=== PATIENT | male | born 1940 ===

== ENCOUNTER → 2020-03-12 09:00 | Outpatient (BNVA) | payer MEDICARE, SELFPAY | PROVIDERS: Visit Provider Nurse Practitioner Family | DX: Z12.5 Encounter for screening for malignant neoplasm of prostate (principal); E78.5 Hyperlipidemia, unspecified | CPT/HCPCS: 80053; 80061; 85025; G0103 ==

== ENCOUNTER 2020-06-01 18:46 | Inpatient (IN) | payer MEDICARE, SELFPAY ==
[2020-06-01] VITALS (9 sets, daily range): BP systolic 108–137; BP diastolic 71–82; PULSE 75–131; RESP 15–29; TEMP 36.4; O2SAT 92–98; BMI 25.1
--- NOTE | 2020-06-01 18:51 | ED_ITS ---
HPI - Abdominal Pain General: Chief Complaint: Abdominal Pain Stated Complaint: ABD PAIN Time Seen by Provider: 06/01/20 18:46 Source: patient and EMS Mode of arrival: EMS Limitations: no limitations History of Present Illness: HPI narrative: Jayy is a very nice 79-year-old male comes in complaining of abdominal pain for the past 2 days. He states his pain is primarily in the lower part of his abdomen. He denies any genital or testicular pain. He does not describe any urinary symptoms. Patient states that he had a normal bowel movement this morning which was normal without blood or melena. He has had no nausea or vomiting. He does feel as though he has had a subjective fever. Patient does not describe any chest pain or shortness of breath. He denies having anything similar in the past. He is unaware of anything that makes his pain better or worse. Patient denies any previous surgeries on his abdomen. He denies any chest pain or shortness of breath. Associated Symptoms: Reports fever(s) (Subjective); Denies chills, dysuria, hematuria and syncope Review of Systems Const: Reports: fever(s) (Subjective); Denies: chills, body aches, fatigue, malaise or diaphoresis Eyes: Denies: change in vision, blurry vision, photophobia, eye discomfort, eye discharge, eye redness or yellow eyes ENMT: Denies: throat pain, odynophagia, hoarseness, swelling of lips/tongue, ear or mastoid pain, ear discharge, change in hearing or nasal discharge Card: Denies: chest pain, palpitations, irregular heart rhythm, edema, lightheadedness, syncope, pre-syncope, dyspnea on exertion or orthopnea Resp: Denies: dyspnea, productive cough, non-productive cough, wheezing, hemoptysis or chest congestion : Denies: flank pain, dysuria, urinary frequency, urinary urgency or hematuria Musc: Denies: neck pain, back pain, extremity pain, extremity swelling, joint pain, joint swelling, joint redness, joint warmth or joint stiffness Skin/Breast: Denies: rash, pruritus, erythema, skin pain or skin tenderness Neuro: Denies: headache(s), numbness in extremities, weakness in extremities, sensory changes, lack of coordination, difficulty walking, dizziness, vertigo, confusion, Slurred speech present or seizure-like activity Kenneth/Lymph: Denies: easy bruising, easy bleeding, petechiae, purpura or enlarged lymph nodes All/Imm: Denies: urticaria, throat swelling, tongue swelling, facial swelling or acute wheezing PFSH ED PFSH: Medical History Erectile dysfunction GERD (gastroesophageal reflux disease) History of melanoma Hyperlipidemia Hypertension Surgical History Hx of bilateral cataract extraction Hx of detached retina repair Hx of melanoma excision Family History Other No pertinent family history Social History Smoking and tobacco status: former smoker Quit status (tobacco): has quit using tobacco Former quit date comment: smoked 2-3 PPD x 30+ yrs Second hand smoke exposure: No Alcohol intake: never Lives independently: Yes Household members: spouse Marital status: Current occupational status: retired History of recent travel: No Current gender identity: Male Physical Exam Const: COMMON NORMALS: no acute distress, patient oriented x3, no limitations and alert GENERAL APPEARANCE: cooperative HENMT: COMMON NORMALS: normocephalic, atraumatic, external ears normal, EAC's normal and Normal external nose present HEAD & SCALP: normal to inspection, normocephalic and atraumatic FACE & SINUS: normal facial exam and face symmetric NOSE: Normal external nose present and Normal nares present EXTERNAL EAR: Yes external ears normal EXTERNAL AUDITORY CANAL: EAC's normal MOUTH: Normal oral and palatal mucosa present, lip normal and tongue normal Eye: COMMON NORMALS: Equal, round and reactive pupils present and conjunctivae normal GENERAL EYE: appearance normal, both eyes and all related structures ALIGNMENT: Yes alignment normal PERIORBITAL: periorbital findings normal EYELID: eyelids normal CONJUNCTIVA: Yes conjunctivae normal SCLERA: sclerae normal PUPIL: Yes Equal, round and reactive pupils present Neck/C-Spine: COMMON NORMALS: full ROM, no lymphadenopathy, supple, no meningeal signs and no JVD GENERAL: Yes normal visual inspection and Yes trachea midline Chest: COMMONS NORMALS: normal inspection of the chest and normal palpation of entire chest wall Resp: COMMON NORMALS: normal respiratory effort, No retractions, No use of accessory muscles and clear to auscultation bilaterally EFFORT & INSPECTION: Yes able to speak in complete sentences and Yes symmetric chest movement AUSCULTATION: clear to auscultation bilaterally, no crackles, no rales, no rhonchi and no wheezes Cardio: COMMON NORMALS: no JVD, regular rate, regular rhythm, S1 normal heart sound present and S2 normal heart sound present RATE: regular rate RHYTHM: regular rhythm HEART SOUNDS: S1 normal heart sound present, S2 normal heart sound present, no click, no gallops, no murmurs and no rubs GI: PALPATION: Yes Firmness to palpation present (GI), Yes Tenderness to palpation present (GI) (Moderate to severe pain diffusely. Worse in the lower quadrants.) and Yes Guarding due to palpation present (GI) : COMMON NORMALS: Yes no CVA tenderness BLADDER/KIDNEY EXAM: Yes no CVA tenderness Back/Pelvis: COMMON NORMALS: no CVA tenderness, thoracic and lumbar spine normal to inspection, no thoracic nor lumbar tenderness and thoraco-lumbar ROM normal Extremity: COMMON NORMALS: normal to inspection, full ROM, capillary refill normal, no joint enlargement, no clubbing, cyanosis or edema and no calf tenderness Neuro: COMMON NORMALS: patient oriented x3, CN's II-XII intact bilaterally, moves all extremities, no focal motor deficits and no sensory deficits noted SENSORIUM/ORIENTATION: Yes alert MENINGEAL SIGNS: Yes no meningeal signs SPEECH: speech normal Psych: COMMON NORMALS: mental status grossly normal, Normal thought process present, cooperative, normal affect, speech normal and activity/motor behavior normal SPEECH: Yes normal speech THOUGHT PROCESS: Normal thought process present Skin: COMMON NORMALS: no rashes or lesions noted, turgor normal, no jaundice, no petechiae and no mottling GENERAL SKIN EXAM: no rashes or lesions noted and turgor normal Course Vital Signs: Vital signs: Vital Signs Temperature 99.5 F 06/02/20 00:30 Pulse Rate 122 H 06/02/20 00:30 Respiratory Rate 18 06/02/20 00:30 Blood Pressure 130/69 06/02/20 00:30 Pulse Oximetry 93 06/02/20 00:30 MDM - Abdominal Pain MDM Narrative: Medical decision making narrative: 2147 -on repeat exam the patient is very tender in the right lower quadrant more so than anywhere else. He still denies any pain in his testicles. Patient has a white count of almost 17,000 but his lactic is normal. On CT scan his appendix is not seen so I do not believe appendicitis can be ruled out. Patient is tachycardic and has significant tenderness with palpation. I have reviewed the case in full with Dr. Norman who agrees to consult for rule out of appendicitis. I will go ahead and add on preoperative labs such as EKGs, troponins, Covid testing and I will go ahead and add a ultrasound of the gallbladder as the patient has right-sided abdominal pain although more lower than upper but he did have cholelithiasis noted on CT. Dr. Norman wanted to hold off any antibiotics at this time. 2356 -patient remains tachycardic and having pain in the right lower quadrant. He has minimal if any right upper quadrant pain. Ultrasound performed by the tech reveals an enlarged common bile duct but no sign of wall thickening or blockage. There is a single gallstone present within the gallbladder. Patient's liver enzymes and T bili and alk phos are normal. This time I believe his right side abdominal pain is undifferentiated although clinically and by exam appendicitis appears much more likely. Because of the ongoing medical problems I have admitted to Dr. Pope he will consult Dr. Norman. Differential Diagnosis: Differential diagnosis abdominal pain: Likely abdominal pain, acute appendicitis, calculus of kidney, constipation, diverticulitis, gastroenteritis, pancreatitis and small bowel obstruction Lab Data: Attestation: I reviewed the patient's lab results. Labs: Lab Results 06/01/20 06/01/20 06/01/20 Range/Units 19:53 19:53 19:53 WBC 16.8 H (4.0-10.0) 10^3/ uL RBC 4.79 (4.1-5.3) 10^6/u L Hgb 14.8 (11.7-16.6) g/dL Hct 44.5 (42.0-52.0) % MCV 92.9 (80-94) fL MCH 30.9 (28.0-34.0) pg MCHC 33.3 (30.0-36.0) g/dL RDW 13.3 (12.1-15.1) % Plt Count 194 (130-400) 10^3/c mm MPV 11.6 H (7.4-10.4) fL Neut % (Auto) 86.6 % Lymph % (Auto) 5.2 % [place] % (Auto) 7.3 % Eos % (Auto) 0.1 % Baso % (Auto) 0.5 % Neut # (Auto) 14.54 H (1.8-7.7) 10^3/u L Lymph # (Auto) 0.9 (0.8-4.8) 10^3/u L [place] # (Auto) 1.2 H (0.2-0.9) 10^3/u L Eos # (Auto) 0.0 (0.0-0.8) 10^3/u L Baso # (Auto) 0.1 (0.0-0.1) 10^3/u L Nucleated RBC % (a uto) 0 % Nucleated RBCs # 0.0 /100WBC PT (12.1-14.9) SECO NDS INR (0.8-1.2) Sodium 140 (136-145) mmol/L Potassium 4.6 (3.5-5.1) mmol/L Chloride 105 (98-107) mmol/L Carbon Dioxide 27 (22-29) mmol/L Anion Gap 12.6 (5-19) BUN 15 (8-23) mg/dL Creatinine 1.0 (0.7-1.2) mg/dL GFR Calculation Not Reportable Glucose 139 H (65-115) mg/dL Calculated Osmolal ity 293 (285-295) mOsm/k g Lactic Acid 1.1 (0.5-2.2) mmol/L Calcium 8.6 (8.5-10.5) mg/dL Magnesium 1.8 (1.7-2.3) mg/dL Total Bilirubin 0.3 (0.15-1.2) mg/dL AST 17 (0-40) U/L ALT 14 (0-41) U/L Alkaline Phosphata se 88 (40-130) IU/L Troponin T Baselin e (0-15) ng/L Troponin T 120 Min elem (0-15) ng/L Delta Troponin T Total Protein 6.5 L (6.6-8.7) g/dL Albumin 3.9 (3.5-5.2) g/dL Globulin 2.6 (1.3-4.6) g/dL Lipase 62 H (13-60) U/L Urine Color (Yellow) Urine Appearance (CLEAR) Urine pH (5-7) Ur Specific Gravit y (1.005-1.030) Urine Protein (Negative) Urine Glucose (UA) (Normal) Urine Ketones (Negative) Urine Blood (Negative) Urine Nitrate (Negative) Urine Bilirubin (Negative) Urine Urobilinogen (Negative) mg/dL Ur Leukocyte [place] (Negative) SARS-CoV-2 Ag (Rap id) (Negative) 06/01/20 06/01/20 06/01/20 Range/Units 19:53 19:53 21:15 WBC (4.0-10.0) 10^3/ uL RBC (4.1-5.3) 10^6/u L Hgb (11.7-16.6) g/dL Hct (42.0-52.0) % MCV (80-94) fL MCH (28.0-34.0) pg MCHC (30.0-36.0) g/dL RDW (12.1-15.1) % Plt Count (130-400) 10^3/c mm MPV (7.4-10.4) fL Neut % (Auto) % Lymph % (Auto) % [place] % (Auto) % Eos % (Auto) % Baso % (Auto) % Neut # (Auto) (1.8-7.7) 10^3/u L Lymph # (Auto) (0.8-4.8) 10^3/u L [place] # (Auto) (0.2-0.9) 10^3/u L Eos # (Auto) (0.0-0.8) 10^3/u L Baso # (Auto) (0.0-0.1) 10^3/u L Nucleated RBC % (a uto) % Nucleated RBCs # /100WBC PT 13.10 (12.1-14.9) SECO NDS INR 0.97 (0.8-1.2) Sodium (136-145) mmol/L Potassium (3.5-5.1) mmol/L Chloride (98-107) mmol/L Carbon Dioxide (22-29) mmol/L Anion Gap (5-19) BUN (8-23) mg/dL Creatinine (0.7-1.2) mg/dL GFR Calculation Glucose (65-115) mg/dL Calculated Osmolal ity (285-295) mOsm/k g Lactic Acid (0.5-2.2) mmol/L Calcium (8.5-10.5) mg/dL Magnesium (1.7-2.3) mg/dL Total Bilirubin (0.15-1.2) mg/dL AST (0-40) U/L ALT (0-41) U/L Alkaline Phosphata se (40-130) IU/L Troponin T Baselin e 11 (0-15) ng/L Troponin T 120 Min elem (0-15) ng/L Delta Troponin T Total Protein (6.6-8.7) g/dL Albumin (3.5-5.2) g/dL Globulin (1.3-4.6) g/dL Lipase (13-60) U/L Urine Color Yellow (Yellow) Urine Appearance Clear (CLEAR) Urine pH 6 (5-7) Ur Specific Gravit y 1.015 (1.005-1.030) Urine Protein Neg (Negative) Urine Glucose (UA) Norm (Normal) Urine Ketones Negative (Negative) Urine Blood Neg (Negative) Urine Nitrate Negative (Negative) Urine Bilirubin Neg (Negative) Urine Urobilinogen Norm (Negative) mg/dL Ur Leukocyte [place] Negative (Negative) SARS-CoV-2 Ag (Rap id) (Negative) 06/01/20 06/01/20 Range/Units 22:04 22:39 WBC (4.0-10.0) 10^3/ uL RBC (4.1-5.3) 10^6/u L Hgb (11.7-16.6) g/dL Hct (42.0-52.0) % MCV (80-94) fL MCH (28.0-34.0) pg MCHC (30.0-36.0) g/dL RDW (12.1-15.1) % Plt Count (130-400) 10^3/c mm MPV (7.4-10.4) fL Neut % (Auto) % Lymph % (Auto) % [place] % (Auto) % Eos % (Auto) % Baso % (Auto) % Neut # (Auto) (1.8-7.7) 10^3/u L Lymph # (Auto) (0.8-4.8) 10^3/u L [place] # (Auto) (0.2-0.9) 10^3/u L Eos # (Auto) (0.0-0.8) 10^3/u L Baso # (Auto) (0.0-0.1) 10^3/u L Nucleated RBC % (a uto) % Nucleated RBCs # /100WBC PT (12.1-14.9) SECO NDS INR (0.8-1.2) Sodium (136-145) mmol/L Potassium (3.5-5.1) mmol/L Chloride (98-107) mmol/L Carbon Dioxide (22-29) mmol/L Anion Gap (5-19) BUN (8-23) mg/dL Creatinine (0.7-1.2) mg/dL GFR Calculation Glucose (65-115) mg/dL Calculated Osmolal ity (285-295) mOsm/k g Lactic Acid (0.5-2.2) mmol/L Calcium (8.5-10.5) mg/dL Magnesium (1.7-2.3) mg/dL Total Bilirubin (0.15-1.2) mg/dL AST (0-40) U/L ALT (0-41) U/L Alkaline Phosphata se (40-130) IU/L Troponin T Baselin e (0-15) ng/L Troponin T 120 Min elem 15.25 H (0-15) ng/L Delta Troponin T Not Reportable Total Protein (6.6-8.7) g/dL Albumin (3.5-5.2) g/dL Globulin (1.3-4.6) g/dL Lipase (13-60) U/L Urine Color (Yellow) Urine Appearance (CLEAR) Urine pH (5-7) Ur Specific Gravit y (1.005-1.030) Urine Protein (Negative) Urine Glucose (UA) (Normal) Urine Ketones (Negative) Urine Blood (Negative) Urine Nitrate (Negative) Urine Bilirubin (Negative) Urine Urobilinogen (Negative) mg/dL Ur Leukocyte [place] (Negative) SARS-CoV-2 Ag (Rap id) Negative (Negative) Imaging Data ^: US: My impression: Right upper quadrant ultrasound, tech interpretation -single gallstone present without any evidence of gallbladder wall thickening or pericholecystic fluid. Common bile duct enlarged but no sign of stone within the common bile duct. CXR: Attestation: I personally reviewed and interpreted this imaging study as follows: My impression: No acute cardiopulmonary findings. EKG Data ^: EKG 1: Attestation: I personally reviewed and interpreted this EKG as follows: EKG interpretation date: 06/01/20 EKG interpretation time: 21:46 Interpretation: Sinus tachycardia at 117 beats a minute, left axis deviation, no blocks, normal intervals, no acute ST or T wave changes. 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
--- NOTE | 2020-06-01 18:51 | CTR_ITS ---
PROCEDURE INFORMATION: Exam: CT Abdomen And Pelvis With Contrast Exam date and time: 06/01/2020 8:29 PM Age: 79 years old Clinical indication: Abdominal pain; Localized; Right lower quadrant (rlq) TECHNIQUE: Imaging protocol: Computed tomography of the abdomen and pelvis with intravenous contrast. Radiation optimization: All CT scans at this facility use at least one of these dose optimization techniques: automated exposure control; mA and/or kV adjustment per patient size (includes targeted exams where dose is matched to clinical indication); or iterative reconstruction. Contrast material: OMNI 300; Contrast volume: 95 ml; Contrast route: INTRAVENOUS (IV); COMPARISON: No relevant prior studies available. RADIATION DOSE METRICS: Total DLP (mGy-cm): 663.26 FINDINGS: Lungs: Mild dependent atelectasis lung bases. Liver: Tiny hepatic cyst inferior segment right hepatic lobe. Liver otherwise unremarkable. Gallbladder and bile ducts: Cholelithiasis. Mild intra and extrahepatic biliary ectasia. No visible choledocholithiasis. Pancreas: Unremarkable. No ductal dilation. Spleen: Normal. No splenomegaly. Adrenal glands: Unremarkable. No mass. Kidneys and ureters: Unremarkable. No hydronephrosis. 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 Assessment of the hollow viscus fails to reveal evidence of active or acute pathology. Nonobstructed bowel pattern. Mild sigmoid diverticulosis coli. No visible acute diverticulitis. No visible adynamic or reactive ileus. Appendix: The appendix is not visualized. Intraperitoneal space: No visible evidence of mesenteric lymphadenitis or active mesenteritis/panniculitis. Vasculature: Coronary artery disease. 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 AP and transverse diameter 35 mm. Length 5.3 cm. No visible intimal flap or dissection. Moderately advanced arterial sclerotic disease. 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 Lymph nodes: No current visible evidence of active mesenteric or retroperitoneal lymphadenopathy. Few marginally prominent retroperitoneal periaortic/pericaval lymph nodes of doubtful clinical significance. Urinary bladder: Unremarkable as visualized. Reproductive: Prostate hypertrophy. Bones/joints: No visible acute osseous abnormality. 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 Degenerative disc disease L5/S1 with vacuum disc phenomenon. Mild scoliotic curvature of the spine. Soft tissues: Bilateral small inguinal hernias containing fat only, right larger than left. CT/CT abdomen pelvis w con* [id number] IMPRESSION: 1. Currently no visible evidence of acute abdominal or pelvic pathologic process. 2. 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 AP and transverse diameter 35 mm. Length 5.3 cm. No visible intimal flap or dissection. 3. Moderately advanced arterial sclerotic disease. 4. 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 5. Cholelithiasis. 6. Mild intra and extrahepatic biliary ectasia. No visible choledocholithiasis. 7. 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 8. Other nonurgent, nonemergent, chronic, and age related findings as detailed in text above. Radiation Dose CTDIVOL = (mGy): DLP = 663.26 (mGy-cm)
[2020-06-01] MEDS: morphine 4 mg/mL SDV 1 mL IVP (19:13)
[2020-06-01] MEDS: ondansetron 2 mg/ML SDV 2 mL 4 MG IVP (19:13)
[2020-06-01] MEDS: sodium chloride 0.9% 1,000 ML 999 ML IV (19:13)
[2020-06-01] MEDS: sodium chloride 0.9% 1,000 ML 100 ML IV (19:50)
[2020-06-01 19:57] LABS: Basophils # 0.1 10^3/uL (0.0-0.1); Basophils % 0.5 %; Eosinophils % 0.1 %; Hematocrit 44.5 % (42.0-52.0); Hemoglobin 14.8 g/dL (11.7-16.6); Lymphocytes # 0.9 10^3/uL (0.8-4.8); Lymphocytes % 5.2 %; Mean Corpuscular HGB Conc 33.3 g/dL (30.0-36.0); Mean Corpuscular Hemoglobin 30.9 pg (28.0-34.0); Mean Corpuscular Volume 92.9 fL (80-94); Mean Platelet Volume 11.6 fL (7.4-10.4); Monocytes # 1.2 10^3/uL (0.2-0.9); Monocytes % 7.3 %; Neutrophils # 14.54 10^3/uL (1.8-7.7); Neutrophils % 86.6 %; Nucleated Red Blood Cells % 0 %; Platelet Count 194 10^3/cmm (130-400); Red Blood Count 4.79 10^6/uL (4.1-5.3); Red Cell Distribution Width 13.3 % (12.1-15.1); White Blood Count 16.8 10^3/uL (4.0-10.0)
[2020-06-01 20:19] LABS: Lactic Sepsis W/Reflex 1.1 mmol/L (0.5-2.2)
[2020-06-01 20:20] LABS: Alanine Aminotransferase 14 U/L (0-41); Albumin Level 3.9 g/dL (3.5-5.2); Alkaline Phosphatase 88 IU/L (40-130); Anion Gap 12.6 (5-19); Aspartate Amino Transferase 17 U/L (0-40); Blood Urea Nitrogen 15 mg/dL (8-23); Calcium 8.6 mg/dL (8.5-10.5); Carbon Dioxide 27 mmol/L (22-29); Chloride 105 mmol/L (98-107); Globulin 2.6 g/dL (1.3-4.6); Glucose 139 mg/dL (65-115); Lipase 62 U/L (13-60); Magnesium 1.8 mg/dL (1.7-2.3); Osmolality Calculated 293 mOsm/kg (285-295); Potassium 4.6 mmol/L (3.5-5.1); Sodium 140 mmol/L (136-145); Total Bilirubin 0.3 mg/dL (0.15-1.2); Total Protein 6.5 g/dL (6.6-8.7)
[2020-06-01] MEDS: iohexol 300 mg/mL 100 mL Btl IV (20:43)
[2020-06-01 21:20] LABS: Add Urine Microscopic? NO; Bilirubin Urine Neg (Negative); Blood Urine Neg (Negative); Glucose Urine UA Norm (Normal); Ketones Urine Negative (Negative); Leukocyte Esterase Urine Negative (Negative); Nitrate Urine Negative (Negative); Protein Urine Neg (Negative); Specific Gravity, Urine 1.015 (1.005-1.030); Urine Appearance Clear (CLEAR); Urine Color Yellow (Yellow); Urobilinogen Urine Norm (Negative); pH Urine 6 (5-7)
--- NOTE | 2020-06-01 21:45 | XR_ITS ---
WS: [id number] Exam: XR chest 1V portable [id number] Date/Time of Exam: 06/01/2020 9:45 PM Reason For Exam: Pain Findings: No priors. Infiltrate right lower lung zone. This could represent active pneumonia versus chronic change. Remain ing lung cedeno are clear. No pneumothorax or pleural effusion. Heart size is top limits normal. Ther e may be a hiatal hernia present. XR/XR chest 1V portable [id number] IMPRESSION: 1. Mild infiltrate in the right lower lung zone. This could represent active pn eumonia or chronic change.
--- NOTE | 2020-06-01 21:46 | ECG_ITS ---
[facility] Test Date: 2020-06-02 Pat Name: Jayy Wooten Department: Room: Gender: Male Layer Up: : 1940 Requested By: Yeimi Pedro Order Number: [id number] Reading MD: Measurements Intervals [place] Rate: 115 P: 48 [place]: 180 QRS: -62 QRSD: 105 T: 48 QT: 329 QTc: 455 Interpretive Statements SINUS TACHYCARDIA LEFT AXIS DEVIATION [QRS AXIS < -30] PATTERN CONSISTENT WITH PULMONARY DISEASE INCOMPLETE RIGHT BUNDLE BRANCH BLOCK [90+ ms QRS DURATION, TERMINAL R IN V1/V2, 40+ ms S IN I/aVL/V4/V5/V6] No previous ECG available for comparison [id number]
--- NOTE | 2020-06-01 21:46 | US_ITS ---
WS: [id number] RIGHT UPPER QUADRANT ULTRASOUND HISTORY: Pain COMPARISON: CT abdomen 06/01/2020. Liver: 16.6 cm in length. Normal size liver. Mild central biliary dilatation. No mass. Gallbladder: Normally distended gallbladder with stones. Gallbladder wall is top normal size. No ramya cholecystic fluid. CBD: 1.3 cm Pancreas: Poorly visualized. Right kidney: 11.0 cm in length. Normal size and echogenicity. No hydronephrosis or mass. Aorta and IVC: Unremarkable abdominal aorta and IVC. No ascites. US/US gall bladder [id number] IMPRESSION: 1. Cholelithiasis without evidence for acute cholecystitis. 2. Dilated common bile duct and mild intrahepatic dilatation. Suspicious for d istal CBD stone or pancreatic head mass. Consider ERCP.
[2020-06-01 22:14] LABS: INR 0.97 (0.8-1.2)
[2020-06-01 22:30] LABS: SARS Covid-2 Antigen Negative (Negative)
[2020-06-01 23:05] LABS: Troponin 5 2HR 15.25 ng/L (0-15)
[2020-06-01 23:30] LABS: Troponin(5th) Baseline 11 ng/L (0-15)
--- NOTE | 2020-06-01 23:46 | ECG_ITS ---
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 Measurements Intervals [place] Rate: 117 P: 49 CO: 178 QRS: -64 QRSD: 106 T: 44 QT: 323 QTc: 452 Interpretive Statements SINUS TACHYCARDIA LEFT AXIS DEVIATION [QRS AXIS < -30] PATTERN CONSISTENT WITH PULMONARY DISEASE No previous ECG available for comparison Electronically Signed On 06-02-2020 7:33:41 CDT by Maria Elena Blair M.D. [id number]
--- NOTE | 2020-06-01 23:52 | P.HP_ITS ---
Providers/Chief Complaint Admitting Physician: Nando Pope MD Primary Care Provider: BRANDON López Chief Complaint: ABD PAIN History of Present Illness Jayy Wooten is a 79 year old male who presented today with chief complaint of abdominal pain. Patient is stating that his symptoms started yesterday around 1 AM, he started feeling sharp epigastric discomfort which gradually got worsened and radiated towards the right lower quadrant, he has also been feeling pain in the right lower quadrant area, endorses nausea, rigors/chills, diaphoresis, however he has not taken temperature at home, no emesis diarrhea or constipation. He decided to come to the hospital for worsening of his symptoms. Denying chest pain and shortness of breath. 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 Review of Systems Const: Reports: chills, body aches and fatigue Eyes: Denies: change in vision ENMT: Denies: throat pain Card: Denies: chest pain Resp: Denies: dyspnea GI: Reports: abdominal pain, nausea and heartburn; Denies: vomiting, diarrhea or constipation : Denies: flank pain Musc: Denies: neck pain Skin/Breast: Denies: rash Neuro: Denies: headache(s) Psych: Denies: anxiety Endo: Denies: polyuria Kenneth/Lymph: Denies: easy bruising All/Imm: Denies: urticaria Medications/Allergies Home Medications Medication Instructions Recorded Confirmed Last Taken Type lisinopril 5 mg tablet 5 mg PO DAILY #90 tab 03/11/20 03/11/20 Unknown Rx rosuvastatin 10 mg tablet 10 mg PO DAILY #90 tab 03/11/20 03/11/20 Unknown Rx vardenafil 20 mg tablet 20 mg PO DAILY PRN #10 tab 03/11/20 03/11/20 Unknown Rx Allergies Allergy/AdvReac Type Severity Reaction Status Date / Time atorvastatin [From Lipitor] Allergy ADR-Cramping Verified 03/12/20 08:59 of the Muscles PFSH Acute PFSH: Medical History Erectile dysfunction GERD (gastroesophageal reflux disease) History of melanoma Hyperlipidemia Hypertension Surgical History Hx of bilateral cataract extraction Hx of detached retina repair Hx of melanoma excision Family History Other No pertinent family history Social History Smoking and tobacco status: former smoker Quit status (tobacco): has quit using tobacco Former quit date comment: smoked 2-3 PPD x 30+ yrs Second hand smoke exposure: No Alcohol intake: never Lives independently: Yes Household members: spouse Marital status: Current occupational status: retired History of recent travel: No Current gender identity: Male Vitals/I&O/Wt Last Vital Signs Temp 97.6 F 06/01/20 18:46 Pulse 114 H 06/01/20 23:30 Resp 24 H 06/01/20 23:30 BP 108/81 06/01/20 23:30 Pulse Ox 92 06/01/20 23:30 06/01/20 06/01/20 06/02/20 14:59 22:59 06:59 Intake Total 1000 / 1000 Balance 1000 / 1000 Weight last 48 hrs Weight 81.647 kg Physical Exam Narrative: EXAM NARRATIVE: elderly male, no active distress when I entered the room Patient resting comfortable in his bed saturating well on room air, tachycardic, tachypneic Not complaining of active chest pain Awake alert oriented x3 GCS 15, no neurological deficit EOMI, PERRLA S1, S2 sinus tachycardia, euvolemic Lower extremity no edema gangrene ulcer No acute respiratory distress Abdomen soft, tenderness elicited in the right upper quadrant, Culver's sign positive, tender point noted also about 2 cm above midpoint of inguinal ligament as well exam of appendicitis appendicitis exam, however Rovsing's sign negative, iliopsoas sign negative, obturator sign negative, positive rebound tenderness in right lower quadrant area Appropriate mood and affect No skin ulcer or gangrene Data : 06/01/20 19:53 06/01/20 19:53 A&P Assessment and plan (1) Abdominal pain: Status: Acute Qualifiers: Abdominal location: right lower quadrant Qualified Code(s): R10.31 - Right lower quadrant pain (2) Aspiration pneumonitis: Status: Acute (3) Diaphragmatic hernia: Status: Acute (4) Sepsis: Status: Acute Additional A&P Information Sepsis Criteria met with tachypnea tachycardia leukocytosis Patient has rebound tenderness in right lower quadrant area, Culver's sign also positive CT scan did not comment on appendix however ultrasound reveals gallstones with gallbladder wall thickening, official report is pending, no signs of cholangitis, chest x-ray is consistent with aspiration pneumonitis, diaphragmatic hernia I would go ahead and keep patient n.p.o., start Zosyn to cover gram-negative's and anaerobes for above-mentioned possible etiologies, start him on fluids Dr. 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 Full code Attestations Medical Necessity Statement*: Anticipating stay in the hospital course more than 2 midnights continued IV antibiotics for sepsis, aspiration pneumonitis, concern for appendicitis Time Spent in Patient Care: (>than 50% of time spent in counselling and/or direct pt care on unit) . 40mins Coding Level of Care Code Acute Sectional Belt Mold Assembler for Chg Fwd Diagnoses Abdominal pain R10.31 Abdominal location: right lower quadrant Aspiration pneumonitis J69.0 Diaphragmatic hernia K44.9 Sepsis A41.9
[2020-06-02] VITALS (21 sets, daily range): BP systolic 114–182; BP diastolic 6–133; PULSE 87–122; RESP 15–57; TEMP 36.4–37.6; O2SAT 90–98
[2020-06-02] MEDS: dextrose 5%-sod chloride 0.45% 1,000 ML 75 ML IV (01:32)
[2020-06-02] MEDS: piperacillin-tazobactam 3.375 GM in sodium chloride 0.9% (plus) 50 ML IV ×4 (01:33→23:46)
--- NOTE | 2020-06-02 06:35 | PM.CONSULT ---
Providers/Reason For Consult Consulting Physican/Specialty*: General Surgery Rizwan Norman MD Reason for Consult*: Right lower quadrant abdominal pain. Attending Physician: Nando Pope MD Primary Care Provider: BRANDON López History of Present Illness History of Present Illness Jayy Wooten is a 79 year old male who woke up with epigastric pain yesterday morning. It eventually started radiating to the right lower quadrant of the abdomen. The patient has had some nausea and chills. He has not taken his temperature at home. He says after a day of putting up with it, he came to the emergency room. A CAT scan showed no obvious acute problems but did show gallstones (also showed up on ultrasound). The patient says that he received mixed messages from different people in the emergency room about what was wrong with him and seems to be very upset about that experience. He was brought into the hospital for further evaluation. He was started on broad-spectrum antibiotics. The patient tells me that he feels little bit better this morning but he has been receiving pain medication. Review of Systems General: Reports: 10 or more systems reviewed and unremarkable except in HPI and below Const: Reports: chills GI: Reports: abdominal pain and nausea; Denies: change in bowel habits Meds/Allergies Home Medications and Allergies Home Medications Medication Instructions Recorded Confirmed Last Taken Type lisinopril 5 mg tablet 5 mg PO DAILY #90 tab 03/11/20 03/11/20 Unknown Rx rosuvastatin 10 mg tablet 10 mg PO DAILY #90 tab 03/11/20 03/11/20 Unknown Rx vardenafil 20 mg tablet 20 mg PO DAILY PRN #10 tab 03/11/20 03/11/20 Unknown Rx Allergies Allergy/AdvReac Type Severity Reaction Status Date / Time atorvastatin [From Lipitor] Allergy ADR-Cramping Verified 03/12/20 08:59 of the Muscles Current Medications Current Medications Generic Name Dose Route Start Last Admin Trade Name Freq PRN Reason Stop Dose Admin Sodium Chloride 1,000 mls @ 100 mls/hr 06/01/20 19:00 06/01/20 19:50 Sodium Chloride 0.9% IV 100 mls/hr .Q10H DENIS Administration Dextrose/Sodium Chloride 1,000 mls @ 75 mls/hr 06/02/20 00:51 06/02/20 01:32 Dextrose 5%-Sod Chloride 0.45% IV 75 mls/hr .[id number] DENIS Administration Piperacillin Sod/Tazobactam 50 mls @ 12.5 mls/hr 06/02/20 01:00 06/02/20 02:02 Sod 3.375 gm/ Sodium Chloride IV 12.5 mls/hr Q8H DENIS Infusion Protocol As Directed PFSH Acute PFSH: Medical History (Updated 06/02/20 @ 06:36 by Rizwan Norman MD) Erectile dysfunction GERD (gastroesophageal reflux disease) History of melanoma Hyperlipidemia Hypertension Surgical History (Updated 06/02/20 @ 06:39 by Rizwan Norman MD) Hx of bilateral cataract extraction Hx of detached retina repair Left Hx of melanoma excision Family History Other No pertinent family history Social History Smoking and tobacco status: former smoker Quit status (tobacco): has quit using tobacco Former quit date comment: smoked 2-3 PPD x 30+ yrs Second hand smoke exposure: No Alcohol intake: never Lives independently: Yes Household members: spouse Marital status: Current occupational status: retired History of recent travel: No Current gender identity: Male Vitals/I&O/Wt Last Vital Signs Temp 99.7 F H 06/02/20 03:53 Pulse 109 H 06/02/20 03:53 Resp 18 06/02/20 03:53 BP 114/64 06/02/20 03:53 Pulse Ox 95 06/02/20 03:53 06/01/20 06/01/20 06/02/20 14:59 22:59 06:59 Intake Total 1000 / 1006.042 6.042 / 1006.042 Output Total 200 / 200 Balance 1000 / 806.042 -193.958 / 806.042 Weight last 48 hrs Weight 180 lb Physical Exam Narrative: EXAM NARRATIVE: Patient was encountered in his hospital room. He does not appear to be in any acute distress. The lungs are clear anteriorly. The heart seems regular. The abdomen reveals hypoactive bowel sounds. The patient has significant tenderness in the right lower quadrant with an equivocal Rovsing's sign. He does have some percussion tenderness in areas of the right lower quadrant. No obvious masses are palpated. The extremities reveal no edema. Neurologically the patient appears to be grossly intact. Data Imaging^: CT Abd/Pel: Radiologist's impression: CT scan abdomen/pelvis 06/01/2020 IMPRESSION: 1. Currently no visible evidence of acute abdominal or pelvic pathologic process. 2. 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 AP and transverse diameter 35 mm. Length 5.3 cm. No visible intimal flap or dissection. 3. Moderately advanced arterial sclerotic disease. 4. 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 5. Cholelithiasis. 6. Mild intra and extrahepatic biliary ectasia. No visible choledocholithiasis. 7. 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 A&P Assessment and plan (1) Right lower quadrant abdominal pain: CT reviewed. Despite the radiologist's reading, I have concerns that I can see some inflammatory change with fat stranding in the right lower quadrant adjacent to what might be a dilated appendix. I told the patient the most common source of these symptoms and findings would be the appendix. We discussed both conservative and surgical methods of treatment. The patient seems to understand. The patient had a bad experience in the emergency room last night. He says his had a bad experience at [facility] in the past. He says that while I have made the most sense of anybody so far, he still would prefer to be seen at a second hospital for a second opinion. We discussed options of transfer versus leaving AMA. Nursing is going to contact the admitting night hospitalist. Status: Acute Consult Attestations Medical Necessity Statement: See admitting service's notation. Coding Level of Care Code Acute Inpatient Nursing Aide for Chg Fwd Diagnoses Right lower quadrant abdominal pain R10.31
[2020-06-02 07:26] LABS: Basophils # 0.1 10^3/uL (0.0-0.1); Basophils % 0.3 %; Hemoglobin 14.8 g/dL (11.7-16.6); Lymphocytes # 1.7 10^3/uL (0.8-4.8); Lymphocytes % 9.2 %; Mean Corpuscular HGB Conc 33.6 g/dL (30.0-36.0); Mean Corpuscular Hemoglobin 30.7 pg (28.0-34.0); Mean Corpuscular Volume 91.3 fL (80-94); Mean Platelet Volume 11.5 fL (7.4-10.4); Monocytes # 1.1 10^3/uL (0.2-0.9); Neutrophils # 15.36 10^3/uL (1.8-7.7); Neutrophils % 84.2 %; Nucleated Red Blood Cells % 0 %; Platelet Count 181 10^3/cmm (130-400); Red Blood Count 4.82 10^6/uL (4.1-5.3); Red Cell Distribution Width 13.8 % (12.1-15.1); White Blood Count 18.2 10^3/uL (4.0-10.0)
[2020-06-02 07:36] LABS: Alanine Aminotransferase 14 U/L (0-41); Albumin Level 4.1 g/dL (3.5-5.2); Alkaline Phosphatase 81 IU/L (40-130); Aspartate Amino Transferase 19 U/L (0-40); Blood Urea Nitrogen 14 mg/dL (8-23); Calcium 8.6 mg/dL (8.5-10.5); Carbon Dioxide 24 mmol/L (22-29); Chloride 106 mmol/L (98-107); Creatinine Clr Calc Pharmacy 56.7575; Globulin 2.7 g/dL (1.3-4.6); Glucose 137 mg/dL (65-115); Osmolality Calculated 293 mOsm/kg (285-295); Sodium 140 mmol/L (136-145); Total Bilirubin 1.1 mg/dL (0.15-1.2); Total Protein 6.8 g/dL (6.6-8.7)
[2020-06-02] MEDS: sodium chloride 0.9% 1,000 ML 30 ML IV (11:00)
--- NOTE | 2020-06-02 11:06 | ANES.PREANE2 ---
Pre-Anesthetic Assessment Pre-Anesthetic Assessment: Height/Weight: Height 1.8 m Weight 81.647 kg Temp Pulse Resp BP Pulse Ox 98.0 F 94 18 138/82 92 06/02/20 10:53 06/02/20 10:53 06/02/20 10:53 06/02/20 10:53 06/02/20 10:53 Preop Diagnosis: Appendicitis Proposed Procedure: Operation Date: 06/02/20 11:30 Proposed Procedures p Laparoscopic Appendectomy(Not Applicable) - Rizwan Norman MD Familial anesthetic complications: None Was Beta Melanie taken within 24 hours: N/A Last intake: Intake Last Liquid Date 06/01/20 Last Liquid Time 23:30 Last Solid Date 06/01/20 Last Solid Time 15:00 Social: Social History: No alcohol and No tobacco Comment: former smoker Exam: Pre-Anes Outpt Exam: alert, oriented x 3, clear to auscultation bilaterally and regular rate & rhythm Airway: Cervical ROM: WNL MP: 2 Dentition: Other (plate) CV/HEM: CV/HEM: HTN Comments: Abdominal aortic aneurysm (5.3 cm) : Comments: diaphragmatic hernia GI: GI: GERD Metabolic: Metabolic: Hyperlipidemia Anesthetic Plan: ASA status: 2 Anesthesia: General Risk of > 500 ml blood loss (7ml/kg in children): No Meds/Allergies Current Medications: Current Medications Generic Name Dose Route Start Last Admin Trade Name Freq PRN Reason Stop Dose Admin Sodium Chloride 1,000 mls @ 100 m ls/hr 06/01/20 19:00 06/01/20 19:50 Sodium Chloride 0.9% IV 100 mls/hr .Q10H DENIS Administration Dextrose/Sodium Ch loride 1,000 mls @ 75 ml s/hr 06/02/20 00:51 06/02/20 01:32 Dextrose 5%-Sod Chloride 0.45% IV 75 mls/hr .[id number] DENIS Administration Piperacillin Sod/T azobactam 50 mls @ 12.5 mls /hr 06/02/20 01:00 06/02/20 09:28 Sod 3.375 gm/ So dium Chloride IV 12.5 mls/hr Q8H DENIS Administration Protocol As Directed Sodium Chloride 1,000 mls @ 30 ml s/hr 06/02/20 10:45 06/02/20 11:00 Sodium Chloride 0.9% IV 06/03/20 10:44 30 mls/hr .Q24H DENIS Administration PFSH Anesthesia PFSH: Medical History (Updated 06/02/20 @ 06:36 by Rizwan Norman MD) Erectile dysfunction GERD (gastroesophageal reflux disease) History of melanoma Hyperlipidemia Hypertension Surgical History (Updated 06/02/20 @ 06:39 by Rizwan Norman MD) Hx of bilateral cataract extraction Hx of detached retina repair Left Hx of melanoma excision Family History Other No pertinent family history Social History Smoking and tobacco status: former smoker Quit status (tobacco): has quit using tobacco Former quit date comment: smoked 2-3 PPD x 30+ yrs Second hand smoke exposure: No Alcohol intake: never Lives independently: Yes Household members: spouse Marital status: Current occupational status: retired History of recent travel: No Current gender identity: Male Data Anesthesia CBC & Chem 7: 06/02/20 07:10 06/02/20 07:10 Other Labs: Laboratory Results - last 48 hr 06/01/20 06/01/20 06/01/20 19:53 19:53 19:53 WBC 16.8 H RBC 4.79 Hgb 14.8 Hct 44.5 MCV 92.9 MCH 30.9 MCHC 33.3 RDW 13.3 Plt Count 194 MPV 11.6 H Neut % (Auto) 86.6 Lymph % (Auto) 5.2 [place] % (Auto) 7.3 Eos % (Auto) 0.1 Baso % (Auto) 0.5 Neut # (Auto) 14.54 H Lymph # (Auto) 0.9 [place] # (Auto) 1.2 H Eos # (Auto) 0.0 Baso # (Auto) 0.1 Nucleated RBC % (auto) 0 Nucleated RBCs # 0.0 PT INR Sodium 140 Potassium 4.6 Chloride 105 Carbon Dioxide 27 Anion Gap 12.6 BUN 15 Creatinine 1.0 GFR Calculation Not Reportable Glucose 139 H Calculated Osmolality 293 Lactic Acid 1.1 Calcium 8.6 Magnesium 1.8 Total Bilirubin 0.3 AST 17 ALT 14 Alkaline Phosphatase 88 Troponin T Baseline Troponin T 120 Minute Delta Troponin T Total Protein 6.5 L Albumin 3.9 Globulin 2.6 Lipase 62 H Urine Color Urine Appearance Urine pH Ur Specific [place] Urine Protein Urine Glucose (UA) Urine Ketones Urine Blood Urine Nitrate Urine Bilirubin Urine Urobilinogen Ur Leukocyte Esterase SARS-CoV-2 Ag (Rapid) 06/01/20 06/01/20 06/01/20 19:53 19:53 21:15 WBC RBC Hgb Hct MCV MCH MCHC RDW Plt Count MPV Neut % (Auto) Lymph % (Auto) [place] % (Auto) Eos % (Auto) Baso % (Auto) Neut # (Auto) Lymph # (Auto) [place] # (Auto) Eos # (Auto) Baso # (Auto) Nucleated RBC % (auto) Nucleated RBCs # PT 13.10 INR 0.97 Sodium Potassium Chloride Carbon Dioxide Anion Gap BUN Creatinine GFR Calculation Glucose Calculated Osmolality Lactic Acid Calcium Magnesium Total Bilirubin AST ALT Alkaline Phosphatase Troponin T Baseline 11 Troponin T 120 Minute Delta Troponin T Total Protein Albumin Globulin Lipase Urine Color Yellow Urine Appearance Clear Urine pH 6 Ur Specific [place] 1.015 Urine Protein Neg Urine Glucose (UA) Norm Urine Ketones Negative Urine Blood Neg Urine Nitrate Negative Urine Bilirubin Neg Urine Urobilinogen Norm Ur Leukocyte Esterase Negative SARS-CoV-2 Ag (Rapid) 06/01/20 06/01/20 06/02/20 22:04 22:39 07:10 WBC 18.2 H RBC 4.82 Hgb 14.8 Hct 44.0 MCV 91.3 MCH 30.7 MCHC 33.6 RDW 13.8 Plt Count 181 MPV 11.5 H Neut % (Auto) 84.2 Lymph % (Auto) 9.2 [place] % (Auto) 6.0 Eos % (Auto) 0.0 Baso % (Auto) 0.3 Neut # (Auto) 15.36 H Lymph # (Auto) 1.7 [place] # (Auto) 1.1 H Eos # (Auto) 0.0 Baso # (Auto) 0.1 Nucleated RBC % (auto) 0 Nucleated RBCs # 0.0 PT INR Sodium Potassium Chloride Carbon Dioxide Anion Gap BUN Creatinine GFR Calculation Glucose Calculated Osmolality Lactic Acid Calcium Magnesium Total Bilirubin AST ALT Alkaline Phosphatase Troponin T Baseline Troponin T 120 Minute 15.25 H Delta Troponin T Not Reportable Total Protein Albumin Globulin Lipase Urine Color Urine Appearance Urine pH Ur Specific [place] Urine Protein Urine Glucose (UA) Urine Ketones Urine Blood Urine Nitrate Urine Bilirubin Urine Urobilinogen Ur Leukocyte Esterase SARS-CoV-2 Ag (Rapid) Negative 06/02/20 07:10 WBC RBC Hgb Hct MCV MCH MCHC RDW Plt Count MPV Neut % (Auto) Lymph % (Auto) [place] % (Auto) Eos % (Auto) Baso % (Auto) Neut # (Auto) Lymph # (Auto) [place] # (Auto) Eos # (Auto) Baso # (Auto) Nucleated RBC % (auto) Nucleated RBCs # PT INR Sodium 140 Potassium 4.0 Chloride 106 Carbon Dioxide 24 Anion Gap 14.0 BUN 14 Creatinine 1.2 GFR Calculation Not Reportable Glucose 137 H Calculated Osmolality 293 Lactic Acid Calcium 8.6 Magnesium Total Bilirubin 1.1 AST 19 ALT 14 Alkaline Phosphatase 81 Troponin T Baseline Troponin T 120 Minute Delta Troponin T Total Protein 6.8 Albumin 4.1 Globulin 2.7 Lipase Urine Color Urine Appearance Urine pH Ur Specific [place] Urine Protein Urine Glucose (UA) Urine Ketones Urine Blood Urine Nitrate Urine Bilirubin Urine Urobilinogen Ur Leukocyte Esterase SARS-CoV-2 Ag (Rapid) Cardiac Studies: No Data to Display
[2020-06-02] MEDS: metroNIDAZOLE IV 500 MG/100 ML PREMIX 100 MG IV (11:51)
--- NOTE | 2020-06-02 12:31 | PM.OP ---
Operative Report Date of procedure: June 02, 2020 Pre-op Diagnosis: Acute appendicitis. Post-op diagnosis: same Procedure Done: Laparoscopic appendectomy. Specimens removed/disposition: Appendix. Surgeon: Rizwan Norman Anesthesia: General Estimated blood loss (mL): 5 Complications: None Condition: stable Disposition: PACU Procedure: The patient was brought to the Operating Room and was placed in a supine position on the operating room table. General endotracheal anesthesia was induced. The abdomen was prepped and draped in a sterile fashion. A small vertical incision was carried out in the superior aspect of the umbilicus. Blunt dissection was carried out down to the fascia, which was grasped with a Sylvia clamp. A stay suture of 0 Vicryl was placed on either side of the midline and the midline fascia was incised. The underlying peritoneum was opened bluntly and the Lester port was placed directly into the peritoneal cavity and was held in place with the inflatable balloon. The peritoneal cavity was insufflated with carbon dioxide. The laparoscope was used to inspect the peritoneal cavity. No gross abnormalities were initially noted. Two 5-millimeter ports were placed in the left lower quadrant under direct vision. The patient was tilted in a Trendelenburg position and slightly to the left side. A laparoscopic Harbeson was used to elevate the cecum and the appendix was identified adhesed to the terminal ileum. There was no evidence of gross perforation but there was a lot of exudate between the appendix and the ileum itself. The appendix was freed using blunt dissection and was then elevated. The mesoappendix was divided using cautery to maintain hemostasis at the base of the appendix. The base of the appendix appeared healthy and was divided using an endoscopic stapler. The appendix was removed from the peritoneal cavity after being placed in a laparoscopic bag. The right lower quadrant and pelvis were irrigated. The staple line on the cecum was identified and appeared to be in good condition. The Lester port was removed from the umbilical site and the stay sutures of Vicryl were tied to each other at the umbilicus, closing the fascial defect so that it was airtight. A final round of irrigation was carried out in the right lower quadrant and the pelvis. No ongoing problems were seen. The remaining ports were removed from the abdominal wall as the pneumoperitoneum was evacuated. All skin incisions were closed using inverted interrupted sutures of 4-0 Vicryl. Benzoin and Steri-Strips were placed over the incisions and Band-Aids followed. The patient was taken to the Recovery Room in stable condition postoperatively.
--- NOTE | 2020-06-02 12:46 | SUR.PHASEI ---
1236 PATIENT TO PACU FROM OR. RESTLESS IN BED. 3 INCISIONS TO ABDOMEN, CDI, COVERED WITH BANDAIDS.
--- NOTE | 2020-06-02 13:15 | PM.PACU ---
PACU note Post-Anesthesia Exam: awake and vital signs stable Disposition: back to floor
--- NOTE | 2020-06-02 13:30 | SUR.PHASEI ---
1315 PATIENT TO MED SURG. DENIES PAIN. INCISIONS TO ABDOMEN, CDI. [facility] ON MED SURG, WITH STEADY GAIT.
--- NOTE | 2020-06-02 15:03 | PC.SOCIAL ---
Noticed attending still shows Dr Pope therefore verified with Dr Mitchell and she indicates to switch to Dr Hopson. Attending switched. Notified unit control clerk on the floor to have nurse call and update provider that this is his patient.
[2020-06-02] MEDS: ketorolac 30 mg/mL INJ 15 MG IVP ×2 (15:48→20:40)
[2020-06-02] MEDS: famotidine 20 mg/2 mL INJ IVP (15:48)
[2020-06-02] MEDS: D5-NS 0.45% + KCL 20 mEq 20 MEQ/1,000 ML BAG 100 MEQ IV (15:49)
[2020-06-02] MEDS: levalbuterol 0.63 mg/3 mL Neb INHALATION ×2 (16:14→19:35)
--- NOTE | 2020-06-02 17:34 | PM.PN ---
Subjective Subjective: Interval history: Patient was seen post op, doing well. wanting to advance diet. Vitals/I&O/Wt Last Vital Signs Temp 97.1 F L 06/03/20 08:00 Pulse 75 06/03/20 12:42 Resp 17 06/03/20 12:42 BP 138/71 06/03/20 08:00 Pulse Ox 93 06/03/20 12:42 06/02/20 06/03/20 06/03/20 22:59 06:59 14:59 Intake Total 410 / 560 1200 / 1760 1530 / 1530 Balance 410 / 555 1200 / 1755 1530 / 1530 Weight last 48 hrs Weight 81.647 kg Data : 06/03/20 02:10 06/03/20 02:10 A&P Assessment and plan (1) Abdominal pain: Status: Acute Qualifiers: Abdominal location: right lower quadrant Qualified Code(s): R10.31 - Right lower quadrant pain (2) Aspiration pneumonitis: Status: Acute (3) Diaphragmatic hernia: Status: Acute (4) Sepsis: Status: Acute Additional A&P Information Abdominal pain due to appy - S/P lap appy Continue IV abx Post op management per surgery Labs in AM Abdominal aortic aneurysm 5.3 cm No acute hemodynamic compromise, 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 Coding Level of Care Code Acute Wader Boot Top Assembler for Chg Fwd Diagnoses Abdominal pain R10.31 Abdominal location: right lower quadrant Aspiration pneumonitis J69.0 Diaphragmatic hernia K44.9 Sepsis A41.9
[2020-06-03] VITALS (7 sets, daily range): BP systolic 118–138; BP diastolic 66–71; PULSE 73–80; RESP 17–20; TEMP 36.2–36.9; O2SAT 92–94
[2020-06-03] MEDS: famotidine 20 mg/2 mL INJ IVP ×2 (02:12→14:28)
[2020-06-03] MEDS: ketorolac 30 mg/mL INJ 15 MG IVP ×3 (02:12→14:28)
[2020-06-03] MEDS: D5-NS 0.45% + KCL 20 mEq 20 MEQ/1,000 ML BAG 100 MEQ IV (02:14)
[2020-06-03 02:51] LABS: Basophils % 0.1 %; Hematocrit 39.7 % (42.0-52.0); Hemoglobin 13.4 g/dL (11.7-16.6); Lymphocytes # 1.2 10^3/uL (0.8-4.8); Mean Corpuscular HGB Conc 33.8 g/dL (30.0-36.0); Mean Corpuscular Hemoglobin 31.2 pg (28.0-34.0); Mean Corpuscular Volume 92.3 fL (80-94); Mean Platelet Volume 11.6 fL (7.4-10.4); Monocytes # 0.6 10^3/uL (0.2-0.9); Monocytes % 3.9 %; Neutrophils # 13.55 10^3/uL (1.8-7.7); Neutrophils % 87.6 %; Nucleated Red Blood Cells % 0 %; Platelet Count 172 10^3/cmm (130-400); Red Cell Distribution Width 13.6 % (12.1-15.1); White Blood Count 15.5 10^3/uL (4.0-10.0)
[2020-06-03 03:18] LABS: Anion Gap 12.2 (5-19); Blood Urea Nitrogen 14 mg/dL (8-23); Calcium 8.5 mg/dL (8.5-10.5); Carbon Dioxide 23 mmol/L (22-29); Chloride 106 mmol/L (98-107); Creatinine Clr Calc Pharmacy 52.3915; Glucose 146 mg/dL (65-115); Osmolality Calculated 287 mOsm/kg (285-295); Potassium 4.2 mmol/L (3.5-5.1); Sodium 137 mmol/L (136-145)
[2020-06-03] MEDS: piperacillin-tazobactam 3.375 GM in sodium chloride 0.9% (plus) 50 ML IV (06:31)
--- NOTE | 2020-06-03 08:12 | P.PN_ITS ---
Subjective Subjective: Interval history: The patient is feeling better. He would like some regular food. He says he is ready to go home. He is passing flatus and tolerating clear liquids. Vitals/I&O/Wt Last Vital Signs Temp 97.1 F L 06/03/20 08:00 Pulse 73 06/03/20 08:00 Resp 18 06/03/20 08:00 BP 138/71 06/03/20 08:00 Pulse Ox 93 06/03/20 04:25 06/02/20 06/03/20 06/03/20 22:59 06:59 14:59 Intake Total 410 / 1760 1200 / 1760 1050 / 1050 Balance 410 / 1755 1200 / 1755 1050 / 1050 Weight last 48 hrs Weight 180 lb Physical Exam Narrative: EXAM NARRATIVE: The patient is afebrile. Bowel sounds are present. All of the laparoscopic incisions look good. Data : 06/03/20 02:10 06/03/20 02:10 A&P Assessment and plan (1) Acute appendicitis: Status post appendectomy for acute appendicitis on 06/02/2020. The patient is already feeling better and would like to go home. His white blood cell count is starting to defervesce but I would probably elect to keep him on some antibiotics for 5 to 7 days given the amount of inflammation in his right lower quadrant at the time of surgery. I will start him on some Augmentin in anticipation of discharge. I will make arrangements for him to follow-up in my office as an outpatient. Status: Acute Attestations Medical Necessity Statement*: See admitting service's notation. 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
[2020-06-03] MEDS: levalbuterol 0.63 mg/3 mL Neb INHALATION (08:32)
[2020-06-03] MEDS: amoxicillin-clav 875-125 mg Tablet 1 TAB PO (10:07)
--- NOTE | 2020-06-03 18:50 | PM.DCS ---
Discharge Providers Date of Admission: 06/02/20 00:51 Date of Discharge: May Attending Provider at Admission: Nando Pope MD Attending Provider at Discharge: Ivone Hopson Primary Care Provider: BRANDON López Diagnoses at Discharge Discharge Diagnosis (1) Abdominal pain: Status: Acute Qualifiers: Abdominal location: right lower quadrant Qualified Code(s): R10.31 - Right lower quadrant pain (2) Aspiration pneumonitis: Status: Acute (3) Diaphragmatic hernia: Status: Acute (4) Sepsis: Status: Acute Reason for Visit Reason for Visit: ABD PAIN Hospital Course Hospital Course: 79 year old male who presented today with chief complaint of abdominal pain. Patient is stating that his symptoms started yesterday around 1 AM, he started feeling sharp epigastric discomfort which gradually got worsened and radiated towards the right lower quadrant, he has also been feeling pain in the right lower quadrant area, endorses nausea, rigors/chills, diaphoresis, however he has not taken temperature at home, no emesis diarrhea or constipation. He decided to come to the hospital for worsening of his symptoms. Denying chest pain and shortness of breath. 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 Upon admission to the hospital patient was seen by general surgery. On June 02, 2020 was taken for a laparoscopic appendectomy. Monitored in the hospital overnight during which time diet was advanced and tolerated by patient. On June 03, 2020 patient was cleared for discharge by General surgery. Oral antibiotics were prescribed by surgery at the time of discharge. Physical Exam Narrative: EXAM NARRATIVE: elderly male, no active distress when I entered the room Patient resting comfortable in his bed saturating well on room air, tachycardic, tachypneic Not complaining of active chest pain Awake alert oriented x3 GCS 15, no neurological deficit EOMI, PERRLA S1, S2 sinus tachycardia, euvolemic Lower extremity no edema gangrene ulcer No acute respiratory distress Abdomen soft, Postoperative, incisions cleared dry intact Appropriate mood and affect No skin ulcer or gangrene Discharge Data Data Completed and Pending: Completed Studies During Hospitalization Category Date Time Status CT abdomen pelvis w con* [id number] Stat Cat Scan 06/01/20 18:51 Completed XR chest 1V joseph ble [id number] Stat Exams 06/01/20 21:45 Completed Pathology: Surgic al [PTH] Routine Pth 06/02/20 12:40 Completed US gall bladder 7 [id number] Urgent Ultrasound 06/01/20 21:46 Completed Pending at discharge Category Date Time Status ES surgery / GI i mages Routine Exams 06/02/20 10:11 Taken Vitals: Last Vital Signs Temp 97.1 F L 06/03/20 14:47 Pulse 75 06/03/20 14:47 Resp 17 06/03/20 14:47 BP 138/71 06/03/20 14:47 Pulse Ox 93 06/03/20 14:47 Discharge Plan Discharge Patient Disposition: Home Condition: Stable Prescriptions: New hydrocodone-acetaminophen 5-325 mg tablet 1 - 2 tab PO Q5H PRN (Reason: pain) Qty: 30 RF: 0 amoxicillin-pot clavulanate 875-125 mg Tablet 1 tab PO BID Qty: 15 RF: 0 Continued rosuvastatin [Crestor] 10 mg tablet 10 mg PO DAILY Qty: 90 RF: 1 vardenafil [Levitra] 20 mg tablet 20 mg PO DAILY PRN (Reason: sexual activity) Qty: 10 RF: 3 lisinopril 5 mg tablet 5 mg PO DAILY Qty: 90 RF: 1 cetirizine 10 mg Tablet 10 mg PO DAILY RF: 0 omeprazole 20 mg Capsule,Delayed Release(Dr/Ec) 20 mg PO DAILY RF: 0 Discharge Orders: Discharge Order (Routine); Ordered 06/03/20 Ordered By: Ivone Hopson Referrals: Rizwan Norman MD [Physician] - 06/16/20 2:30 pm Debbie Evans FNP [Primary Care Provider] - 06/08/20 1:20 pm Discharge Diet: Advance as tolerated Discharge Activity: Limit activity as instructed Patient Instructions: Hydrocodone/Acetaminophen (By mouth), Amoxicillin/Clavulanate Potassium (By mouth), Laparoscopic Appendectomy (DC) Activity Restrictions/Additional Instructions: 1. Discharge to home when okay with hospitalist team. 2. Appointment to see Dr. Norman in 10-14 days as above. 3. Leave Steri-Strip(s) on at home as discussed, may shower. 4. [place] 5/325 1-2 tablets by mouth every 5 hours as needed for pain. #30, no refills. No lifting over 20 pounds, no repetitive bending or twisting, no strenuous pushing / pulling or other heavy activity. Ambulate regularly. May go up and down steps if needed. 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
== END 2020-06-03 14:49 | disposition home or self-care (01) | DRG 853 ==
LOC: ER 22:10 → MEDSURG 23:49
PROVIDERS: Emergency Medicine; Surgery; Admitting Provider Internal Medicine; PCP Nurse Practitioner Family; Visit Provider Hospitalist
PROC: 0DTJ4ZZ Resection of Appendix, Percutaneous Endoscopic Approach (ICD-10-PCS; CPT 44970; principal; 2020-06-02 11:30)
DX: A41.9 Sepsis, unspecified organism (principal); J69.0 Pneumonitis due to inhalation of food and vomit; K35.80 Unspecified acute appendicitis; K21.9 Gastro-esophageal reflux disease without esophagitis; Z85.820 Personal history of malignant melanoma of skin; E78.5 Hyperlipidemia, unspecified; I10 Essential (primary) hypertension; Z87.891 Personal history of nicotine dependence; K44.9 Diaphragmatic hernia without obstruction or gangrene; I71.4 Abdominal aortic aneurysm, without rupture; K57.30 Diverticulosis of large intestine without perforation or abscess without bleeding
CPT/HCPCS: 12345; 36415; 71045; 74177; 76705; 80048; 80053; 81003; 83605; 83690; 83735; 84484; 85025; 85610; 87426; 88304; 93005; 94640; 96375; 99284; G0378; J0330; J0690; J1100; J1885; J2250; J2270; J2405; J2543; J2704; J2710; J3010; J3490; J7030; J7614; J7799; Q9967; S0030

== ENCOUNTER → 2020-06-08 14:26 | Outpatient (BNVA) | payer MEDICARE, SELFPAY | PROVIDERS: PCP Nurse Practitioner Family; Visit Provider Family Medicine | DX: K35.30 Acute appendicitis with localized peritonitis, without perforation or gangrene (principal); Z09 Encounter for follow-up examination after completed treatment for conditions other than malignant neoplasm | CPT/HCPCS: 85025 ==

== ENCOUNTER → 2020-08-11 09:04 | Outpatient (BNVA) | payer MEDICARE, SELFPAY | PROVIDERS: PCP Nurse Practitioner Family; Visit Provider Nurse Practitioner Family | DX: E78.5 Hyperlipidemia, unspecified (principal); Z12.5 Encounter for screening for malignant neoplasm of prostate | CPT/HCPCS: 80053; 80061; 85025; G0103 ==

== ENCOUNTER → 2021-06-22 09:29 | Outpatient (BNVA) | payer MEDICARE, SELFPAY | PROVIDERS: PCP Nurse Practitioner Family; Visit Provider Nurse Practitioner Family | DX: E78.5 Hyperlipidemia, unspecified (principal); I10 Essential (primary) hypertension; K21.9 Gastro-esophageal reflux disease without esophagitis | CPT/HCPCS: 80053; 80061 ==

== ENCOUNTER → 2021-11-24 10:51 | Outpatient (BNVA) | payer MEDICARE, SELFPAY | PROVIDERS: PCP Nurse Practitioner Family; Visit Provider Nurse Practitioner Family | DX: I10 Essential (primary) hypertension (principal); K21.9 Gastro-esophageal reflux disease without esophagitis; N52.9 Male erectile dysfunction, unspecified; E78.5 Hyperlipidemia, unspecified; M25.559 Pain in unspecified hip; G89.29 Other chronic pain; J30.9 Allergic rhinitis, unspecified; Z00.00 Encounter for general adult medical examination without abnormal findings; Z12.5 Encounter for screening for malignant neoplasm of prostate | CPT/HCPCS: 80053; 80061; 82607; 83735; 84443; 85025; G0103 ==

== ENCOUNTER → 2022-06-21 10:04 | Outpatient (BNVA) | payer MEDICARE, SELFPAY | PROVIDERS: PCP Nurse Practitioner Family; Visit Provider Nurse Practitioner Family | DX: I10 Essential (primary) hypertension (principal); R73.9 Hyperglycemia, unspecified; K21.9 Gastro-esophageal reflux disease without esophagitis; N52.9 Male erectile dysfunction, unspecified; E78.5 Hyperlipidemia, unspecified; G89.29 Other chronic pain; M25.559 Pain in unspecified hip | CPT/HCPCS: 80053; 80061; 82607; 83036; 84443; 85025 ==

== ENCOUNTER → 2022-08-24 10:49 | Outpatient (BNVA) | payer MEDICARE, SELFPAY | PROVIDERS: PCP Nurse Practitioner Family; Visit Provider Nurse Practitioner Family | DX: R79.89 Other specified abnormal findings of blood chemistry (principal); E03.9 Hypothyroidism, unspecified | CPT/HCPCS: 84439; 84443; 84481 ==

== ENCOUNTER → 2022-11-23 09:57 | Outpatient (BNVA) | payer MEDICARE, SELFPAY | PROVIDERS: PCP Nurse Practitioner Family; Visit Provider Podiatrist Foot & Ankle Surgery | DX: Q82.8 Other specified congenital malformations of skin (principal) | CPT/HCPCS: 17110; 99203 ==

== ENCOUNTER → 2022-12-16 10:47 | Outpatient (BNVA) | payer MEDICARE, SELFPAY | PROVIDERS: PCP Nurse Practitioner Family; Visit Provider Nurse Practitioner Family | DX: E78.5 Hyperlipidemia, unspecified (principal); R73.9 Hyperglycemia, unspecified; Z12.5 Encounter for screening for malignant neoplasm of prostate; K21.9 Gastro-esophageal reflux disease without esophagitis; I10 Essential (primary) hypertension; N52.9 Male erectile dysfunction, unspecified; M25.50 Pain in unspecified joint | CPT/HCPCS: 80053; 80061; 83036; 84443; 85025; G0103 ==

== ENCOUNTER → 2022-12-21 11:05 | Outpatient (BNVA) | payer MEDICARE, SELFPAY | PROVIDERS: PCP Nurse Practitioner Family; Visit Provider Podiatrist Foot & Ankle Surgery | DX: Q82.8 Other specified congenital malformations of skin (principal) | CPT/HCPCS: 17110 ==

== ENCOUNTER → 2023-02-13 11:16 | Outpatient (BNVA) | payer MEDICARE, SELFPAY | PROVIDERS: PCP Nurse Practitioner Family; Visit Provider Podiatrist Foot & Ankle Surgery | DX: Q82.8 Other specified congenital malformations of skin (principal) | CPT/HCPCS: 99213 ==

== ENCOUNTER → 2023-08-10 09:42 | Outpatient (BNVA) | payer MEDICARE, SELFPAY | PROVIDERS: PCP Nurse Practitioner Family; Visit Provider Nurse Practitioner Family | DX: E78.5 Hyperlipidemia, unspecified (principal) | CPT/HCPCS: 80053; 80061; 82607; 83036; 83735; 84443; 85025 ==

== ENCOUNTER 2023-08-22 12:00 | Outpatient (CLI) | payer MEDICARE, SELFPAY ==
--- NOTE | 2023-08-22 12:30 | USCV_ITS ---
SugarJayy Age: 82 Gender: M : 1940 Exam Date: 08/22/2023 12:16 Ordering Phys: Debbie Evans FACILITY PRACTICE SPECIALIST Technologist: Xena Blankenship Exam Location: [facility] [place] Indication: HISTORY: PROCEDURES: FINDINGS: The veins were found to be easily compressible with spontaneous blood flow. Non pulsatile flow pattern. No significant venous reflux were noted CONCLUSIONS No evidence of DVT in the above-mentioned identifiable veins. No significant venous reflux on the left side Dr Ever Zhou MD [facility] (Electronically Signed) Final Date: 22 August 2023 19:58 S
== END 2023-08-22 12:01 | disposition home or self-care (01) ==
LOC: RAD 12:00
PROVIDERS: PCP Nurse Practitioner Family; Visit Provider Nurse Practitioner Family
DX: M79.605 Pain in left leg (principal)
CPT/HCPCS: 93971

== ENCOUNTER 2023-08-25 14:44 | Outpatient (CLI) | payer MEDICARE, SELFPAY ==
--- NOTE | 2023-08-25 15:00 | USR_ITS ---
PROCEDURE INFORMATION: Exam: US Duplex Left Lower Extremity Arteries Or Arterial Bypass Grafts Exam date and time: 08/25/2023 3:21 PM Age: 82 years old Clinical indication: Pain; Leg, lower; Left; Additional info: M79.605 - pain in left leg TECHNIQUE: Imaging protocol: Left Real-time duplex scan of the arteries or arterial bypass grafts of the left lower extremity with 2-D jim scale, color Doppler flow and spectral waveform analysis. Images documented and saved. COMPARISON: CT abdomen pelvis w con* [id number] 06/01/2020 8:38 PM FINDINGS: Moderate, irregular, echogenic areas with posterior shadowing within visualized iliac and common femoral arteries reflect atherosclerosis. Visualized portions of left iliac and common femoral arteries demonstrate spontaneous, pulsatile, triphasic arterial waveforms. Superficial femoral, posterior tibial, and dorsalis pedis arteries possess spontaneous, pulsatile, monophasic arterial waveforms, with pulsus parvus. Popliteal artery demonstrates spontaneous, pulsatile, biphasic arterial waveforms, with pulsus parvus. Left ankle-brachial index measures 0.5. 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 When correlated with prior CT, there appears to be severe stenosis at proximal superficial femoral artery.
== END 2023-08-25 14:45 | disposition home or self-care (01) ==
LOC: RAD 14:44
PROVIDERS: PCP Nurse Practitioner Family; Visit Provider Nurse Practitioner Family
DX: I70.202 Unspecified atherosclerosis of native arteries of extremities, left leg (principal); I70.8 Atherosclerosis of other arteries
CPT/HCPCS: 93926